=== PATIENT | male | born 1960 | race Caucasian/White ===

== ENCOUNTER 2016-09-13 22:05 | Emergency (ER) | payer OTHER ==
[2016-09-13] MEDS ORDERED: KETOROLAC 60 MG/2 ML VIAL IVP STA (22:43)
[2016-09-13] MEDS ORDERED: ONDANSETRON ODT 4 MG TABLET TL STA (22:43)
[2016-09-13] MEDS ORDERED: SODIUM CHLORIDE 0.9% 1,000 ML IV ONE (22:43)
[2016-09-13] MEDS ORDERED: ACETAMINOPHEN 500 MG TABLET PO STA (22:43)
[2016-09-13] MEDS ORDERED: ONDANSETRON 4 MG/2 ML VIAL ONE (22:54)
[2016-09-13] MEDS ORDERED: KETOROLAC 30 MG/ML VIAL ONE (22:54)
[2016-09-13] MEDS ORDERED: ACETAMINOPHEN 500 MG TABLET PO ONE (22:55)
[2016-09-13] MEDS ORDERED: CIPROFLOXACIN 250 MG TABLET PO STA (23:29)
[2016-09-13] MEDS ORDERED: CIPROFLOXACIN 250 MG TABLET PO ONE (23:36)
[2016-09-14] MEDS ORDERED: ONDANSETRON ODT 4 MG Prepack 2 TL PRN (00:08)
[2016-09-14] MEDS ORDERED: ONDANSETRON ODT 4 MG Prepack 2 TL ONE (00:11)
== END 2016-09-14 00:28 | disposition home or self-care (01) ==
DX: R30.0 Dysuria (principal); R50.9 Fever, unspecified; R10.30 Lower abdominal pain, unspecified
CPT/HCPCS: 36415; 80053; 81003; 83605; 83690; 85025; 96374; 99283; 99284; A9270

== ENCOUNTER 2017-05-15 02:08 | Outpatient (CLI) | payer OTHER | END 2017-05-15 02:09 | disposition critical access hospital (66) | LOC: EMS 02:08 | PROVIDERS: ATTEND Surgery | DX: M54.5 Low back pain (principal) | CPT/HCPCS: A0425; A0429 ==

== ENCOUNTER 2017-05-15 02:27 | Emergency (ER) | payer OTHER ==
[2017-05-15] MEDS ORDERED: SODIUM CHLORIDE 0.9% 1,000 ML IV ONE (02:38)
[2017-05-15] MEDS ORDERED: DEXAMETHASONE 10 MG/ML VIAL IVP STA (02:38)
--- NOTE | 2017-05-15 02:43 | ED Physician Documentation ---
PD HPI BACK PAIN - Stated complaint Stated Complaint: BACK PX - Chief complaint Chief Complaint: Back Pain - History obtained from History obtained from: Patient, Family, EMS - History of Present Illness Timing - onset: Yesterday Timing - duration: Hours Timing - details: Gradual onset, Still present Location: Lower, Right Quality: Pain, Spasm, Sharp Associated symptoms: No: Fever, Weakness, Numbness, Incontinent of urine, Unable to urinate, Hematuria, Incontinent of stool Improves with: Rest, Ice, Position, Meds Worsened by: Movement Contributing factors: Other (The patient had a loading injury about 10 days ago) Similar symptoms before: Has not had sx before Recently seen: Not recently seen - Additional information Additional information: 57-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 He initially injured his back about 10 days ago lifting an appliance. He had some stiffness of to his back he steadily got better over the week and return to his usual exercise regimens of cycling he developed some increased pain this morning and when he attempted to do his usual back and abdominal exercises his pain became much worse. He is now experiencing some spasm in his legs as well and feels a bit dry.He has experienced similar spasms in his legs following cycling when he is not hydrated adequately. Review of Systems Constitutional: reports: Myalgias. denies: Fever, Chills, Fatigue Eyes: denies: Decreased vision Ears: denies: Ear pain Nose: denies: Rhinorrhea / runny nose, Congestion Throat: denies: Sore throat Cardiac: denies: Chest pain / pressure, Palpitations Respiratory: denies: Dyspnea, Cough GI: denies: Abdominal Pain, Nausea, Vomiting, Constipation, Diarrhea : denies: Dysuria, Frequency Skin: denies: Rash Musculoskeletal: reports: Back pain. denies: Neck pain, Extremity pain Neurologic: denies: Generalized weakness, Focal weakness, Numbness PD PAST MEDICAL HISTORY - Past Medical History Cardiovascular: None Respiratory: None Endocrine/Autoimmune: None GI: None, Colon polyps : Benign prostate hypertrophy, Other HEENT: None Psych: None Derm: None - Past Surgical History Past Surgical History: Yes General: Colonoscopy Ortho: Other - Present Medications Home Medications: Ambulatory Orders Medication Instructions Recorded Confirmed Doxazosin [Cardura] 4 mg PO DAILY 10/25/15 10/25/15 Ciprofloxacin HCl [Cipro] 500 mg PO BID #14 tablet 09/14/16 Ondansetron Odt [Zofran] 4 mg TL Q6H PRN #10 tablet 09/14/16 Cyclobenzaprine [Flexeril] 10 mg PO TID PRN #20 tablet 05/15/17 HYDROcod/ACETAM 5/325 [[place] 5/325] 1 - 2 ea PO Q6H PRN #15 tablet 05/15/17 - Allergies Allergies/Adverse Reactions: Allergies Allergy/AdvReac Type Severity Reaction Status Date / Time No Known Drug Allergies Allergy Verified 05/15/17 02:37 - Social History Does the pt smoke?: No Smoking Status: Never smoker Does the pt drink ETOH?: Yes Does the pt have substance abuse?: No - POLST Patient has POLST: No PD ED PE NORMAL - Vitals Vital signs reviewed: Yes (hypertensive ) - General General: No acute distress, Well developed/nourished - HEENT HEENT: Atraumatic, PERRL - Neck Neck: Supple, no meningeal sign - Cardiac Cardiac: RRR, No murmur - Respiratory Respiratory: No respiratory distress, Clear bilaterally - Abdomen Abdomen: Soft, Non tender - Back Back: No CVA TTP, Other (There is paraspinous muscle tenderness to the lower lumbar spine and palpation of the lower muscles illicits acute spasm.) - Derm Derm: Normal color, Warm and dry, No rash - Extremities Extremities: No deformity, No edema - Neuro Neuro: Alert and oriented X 3, 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, No motor deficit, No sensory deficit, Normal speech - Psych Psych: Normal mood, Normal affect Results - Vitals Vitals: Vital Signs - 24 hr 05/15/17 05/15/17 02:34 04:03 Temperature 37.0 C Heart Rate 67 55 L Respiratory 17 16 Rate Blood Pressure 149/82 H 152/80 H O2 Saturation 100 96 Oxygen O2 Source Room air - Labs Labs: Laboratory Tests 05/15/17 05/15/17 05/15/17 02:45 02:45 02:45 WBC 8.3 RBC 4.67 L Hgb 14.7 Hct 43.0 MCV 92.1 MCH 31.5 H MCHC 34.2 RDW 12.4 Plt Count 257 MPV 7.3 L Neut # 5.5 Lymph # 1.8 [place] # 0.8 Eos # 0.2 Baso # 0.0 Absolute Nucleated RBC 0.00 Nucleated RBCs 0.0 Sodium 139 Potassium 3.3 L Chloride 104 Carbon Dioxide 26 Anion Gap 9.0 BUN 22 H Creatinine 0.9 Estimated GFR (MDRD) 86 L Glucose 105 H Calcium 9.6 Total Bilirubin 1.3 H AST 20 ALT 16 Alkaline Phosphatase 50 Troponin I < 0.04 Total Protein 7.3 Albumin 4.4 Globulin 2.9 Albumin/Globulin Ratio 1.5 Lipase 24 Procedures - IVC sono (time) 0241 Bedside IVC sono: IVC measures (cm) (1.44), IVC collapsed c insp (cm) (complete) , Dehydration (mild) PD MEDICAL DECISION MAKING - ED course Complexity details: reviewed old records, reviewed results, re-evaluated patient , considered differential, d/w patient, d/w family ED course: 57-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 He is brought into the hospital by ambulance he is well if he is not moving at all if he moves even a little bit he has acute spasm. Here in the emergency department he is found to be dehydrated and he is given IV hydration and dexamethasone. He does ride his bicycle and he has been back to exercising and I suspect this is where he became dehydrated and his recent injury has led to the spasms in his back with the dehydration. Ultimately he gets relief with dilaudid. Departure - Departure Disposition: 01 Home, Self Care Clinical Impression: Dehydration Lumbar strain Qualifiers: Encounter type: initial encounter Qualified Code(s): S39.012A - Strain of muscle, fascia and tendon of lower back, initial encounter Condition: Stable Instructions: ED Sprain Strain Lumbar, ED Dehydration Follow-Up: Hussein Ye MD [Primary Care Provider] - Prescriptions: Cyclobenzaprine [Flexeril] 10 mg PO TID PRN #20 tablet PRN Reason: Spasms HYDROcod/ACETAM 5/325 [[place] 5/325] 1 - 2 ea PO Q6H PRN #15 tablet PRN Reason: Pain
[2017-05-15 02:51] LABS: BASOPHILS % (AUTO) 0.5 %; EOSINOPHILS # (AUTO) 0.2 10^3/uL (0.0-0.7); EOSINOPHILS % (AUTO) 2.2 %; HGB - HEMOGLOBIN 14.7 g/dL (14.0-18.0); LYMPHOCYTES # (AUTO) 1.8 10^3/uL (1.5-3.5); LYMPHOCYTES % (AUTO) 21.2 %; MEAN CORPUSCULAR HEMOGLOBIN 31.5 pg (27.0-31.0); MEAN CORPUSCULAR HGB CONC 34.2 g/dL (32.0-36.0); MEAN CORPUSCULAR VOLUME 92.1 fL (80.0-94.0); MEAN PLATELET VOLUME 7.3 fL (7.4-11.4); MONOCYTES # (AUTO) 0.8 10^3/uL (0.0-1.0); NEUTROPHILS # (AUTO) 5.5 10^3/uL (1.5-6.6); NEUTROPHILS % (AUTO) 66.1 %; RED BLOOD COUNT 4.67 10^6/uL (4.70-6.10); RED CELL DISTRIBUTION WIDTH 12.4 % (12.0-15.0); UNCORRECTED WHITE BLOOD COUNT 8.3 x10^3/uL; WHITE BLOOD COUNT 8.3 x10^3/uL (4.8-10.8)
[2017-05-15] MEDS ORDERED: DEXAMETHASONE 10 MG/ML VIAL ONE (03:00)
[2017-05-15 03:03] LABS: ALBUMIN/GLOBULIN RATIO 1.5 (1.0-2.2); BILIRUBIN,TOTAL 1.3 mg/dL (0.2-1.0); CALCIUM 9.6 mg/dL (8.5-10.3); CREATININE 0.9 mg/dL (0.6-1.2); POTASSIUM 3.3 mmol/L (3.5-5.0); TOTAL PROTEIN 7.3 g/dL (6.7-8.2)
[2017-05-15] MEDS ORDERED: POTASSIUM BICARB 25 MEQ TABLET PO STA (03:23)
[2017-05-15] MEDS ORDERED: POTASSIUM BICARB 25 MEQ TABLET PO ONE (03:33)
[2017-05-15] MEDS ORDERED: KETOROLAC 60 MG/2 ML VIAL IVP STA (03:33)
[2017-05-15] MEDS ORDERED: KETOROLAC 30 MG/ML VIAL ONE (03:43)
[2017-05-15] MEDS ORDERED: HYDROmorphone 1 MG/ML SYRINGE IVP STA (04:09)
[2017-05-15] MEDS ORDERED: HYDROmorphone 1 MG/ML SYRINGE ONE (04:23)
[2017-05-15 05:00] VITALS: BP 153/80
== END 2017-05-15 05:09 | disposition home or self-care (01) ==
LOC: EDUNIT# → SUPCPDRO 02:27 → ED 02:27
DX: E86.0 Dehydration (principal); S39.012A Strain of muscle, fascia and tendon of lower back, initial encounter; X50.0XXA Overexertion from strenuous movement or load, initial encounter; Y93.89 Activity, other specified
CPT/HCPCS: 36415; 80053; 83690; 84484; 85025; 96374; 96375; 99283; 99284; A9270; J1170

== ENCOUNTER 2021-09-06 08:00 | Outpatient (CLI) | payer OTHER ==
[2021-09-06 12:02] LABS: BASOPHILS # (AUTO) 0.1 10^3/uL (0.0-0.1); BASOPHILS % (AUTO) 0.9 %; EOSINOPHILS # (AUTO) 0.1 10^3/uL (0.0-0.7); EOSINOPHILS % (AUTO) 2.3 %; HCT - HEMATOCRIT 41.2 % (42.0-52.0); HGB - HEMOGLOBIN 14.4 g/dL (14.0-18.0); LYMPHOCYTES # (AUTO) 1.4 10^3/uL (1.5-3.5); LYMPHOCYTES % (AUTO) 23.8 %; MEAN CORPUSCULAR VOLUME 91.6 fL (80.0-94.0); MEAN PLATELET VOLUME 9.5 fL (7.4-11.4); MONOCYTES # (AUTO) 0.9 10^3/uL (0.0-1.0); MONOCYTES % (AUTO) 14.9 %; NEUTROPHILS # (AUTO) 3.3 10^3/uL (1.5-6.6); NEUTROPHILS % (AUTO) 57.6 %; PLT - PLATELET COUNT 306 10^3/uL (130-450); RED CELL DISTRIBUTION WIDTH 11.9 % (12.0-15.0); WHITE BLOOD COUNT 5.7 x10^3/uL (4.8-10.8)
[2021-09-06 12:19] LABS: ALBUMIN 3.9 g/dL (3.2-5.5); ALBUMIN/GLOBULIN RATIO 1.4 (1.0-2.2); ALKALINE PHOSPHATASE 47 IU/L (42-121); ALT ALANINE AMINOTRANSFERASE 25 IU/L (10-60); AST ASPARTATE AMINOTRANSFERASE 24 IU/L (10-42); BILIRUBIN,TOTAL 1.2 mg/dL (0.2-1.0); BUN - BLOOD UREA NITROGEN 15 mg/dL (6-20); CALCIUM 9.2 mg/dL (8.5-10.3); CARBON DIOXIDE - CO2 25 mmol/L (21-32); CHLORIDE 104 mmol/L (101-111); CHOL/HDL RATIO 3.1 (<5.0); CHOLESTEROL 214 mg/dL; GFR - MDRD 75 (>89); GLUCOSE 92 mg/dL (70-100); HDL CHOLESTEROL 70 mg/dL; LDL CHOLESTEROL,CALCULATED 133 mg/dL; LDL/HDL RATIO 1.9 (<3.6); POTASSIUM 3.5 mmol/L (3.5-5.0); SODIUM 137 mmol/L (135-145); TOTAL PROTEIN 6.7 g/dL (6.7-8.2); TRIGLYCERIDES 54 mg/dL; VLDL CHOLESTEROL 11 mg/dL
[2021-09-06 12:25] LABS: THYROID STIMULATING HORMONE 1.35 uIU/mL (0.34-5.60)
== END 2021-09-06 23:59 ==
LOC: LAB.WCP 08:00
PROVIDERS: ATTEND Family Medicine
DX: Z00.00 Encounter for general adult medical examination without abnormal findings (principal); E78.5 Hyperlipidemia, unspecified
CPT/HCPCS: 36415; 80053; 80061; 83721; 84443; 85025

== ENCOUNTER 2022-12-01 09:43 | Outpatient (CLI) | payer BC ==
--- NOTE | 2022-12-01 10:32 | XRAY Report ---
PROCEDURE: Shoulder 2 View RT INDICATIONS: CERVICAL RADICULOPATHY TECHNIQUE: 2 views of the shoulder were acquired. COMPARISON: None. FINDINGS: Bones: Glenoid anchor sutures. Mild glenohumeral joint degenerative change. No fractures or dislocat ions. No suspicious bony lesions. Visualized ribs appear intact. Soft tissues: No suspicious soft tissue calcifications. IMPRESSION: Mild glenohumeral joint degenerative change. No evidence acute bony abnormality of the r ight shoulder. If clinical suspicion and/or symptoms persist, further assessment with repeat plain films or advanced imaging (e.g., CT, MRI, or bone scan) may be helpful for further assessment. Reviewed by: Ren Pandey MD on 12/01/2022 10:31 AM PDT Approved by: Ren Pandey MD on 12/01/2022 10:31 AM PDT Station ID: [id number]
--- NOTE | 2022-12-01 10:34 | XRAY Report ---
PROCEDURE: Cervical Spine Comp w/Flex/Ext INDICATIONS: CERVICAL RADICULOPATHY TECHNIQUE: 7 views of the cervical spine were acquired. COMPARISON: None. FINDINGS: Bones: No fractures or dislocations to the T1 level. No suspicious bony lesions. There is somewhat diminished range of motion between flexion and extension, with preserved normal bony alignment. Obli que films demonstrate moderate to severe right foraminal narrowing at C4-C5. There is ossification po sterior to the tip of the C7 and C8 spinous processes, which is consistent with remote trauma. Soft tissues: Prevertebral soft tissues are normal in thickness. IMPRESSION: 1. Cervical spondylosis with moderate to severe right bony foraminal narrowing at C4-C5. 2. No abnormal motion on flexion and extension. Reviewed by: Ren Pandey MD on 12/01/2022 10:33 AM PDT Approved by: Ren Pandey MD on 12/01/2022 10:33 AM PDT Station ID: [id number]
== END 2022-12-01 09:44 | disposition home or self-care (01) ==
LOC: DI 09:43
PROVIDERS: ATTEND Family Medicine
DX: M75.41 Impingement syndrome of right shoulder (principal); M19.011 Primary osteoarthritis, right shoulder; M47.22 Other spondylosis with radiculopathy, cervical region; M48.02 Spinal stenosis, cervical region

== ENCOUNTER 2023-03-05 07:17 | Outpatient (CLI) | payer BC ==
[2023-03-05 13:16] LABS: BASOPHILS % (AUTO) 0.7 %; EOSINOPHILS # (AUTO) 0.2 10^3/uL (0.0-0.7); EOSINOPHILS % (AUTO) 4.3 %; HCT - HEMATOCRIT 44.8 % (42.0-52.0); HGB - HEMOGLOBIN 15.5 g/dL (14.0-18.0); LYMPHOCYTES # (AUTO) 1.4 10^3/uL (1.5-3.5); LYMPHOCYTES % (AUTO) 25.8 %; MEAN CORPUSCULAR HEMOGLOBIN 31.4 pg (27.0-31.0); MEAN CORPUSCULAR HGB CONC 34.6 g/dL (32.0-36.0); MEAN CORPUSCULAR VOLUME 90.9 fL (80.0-94.0); MEAN PLATELET VOLUME 9.9 fL (7.4-11.4); MONOCYTES # (AUTO) 0.7 10^3/uL (0.0-1.0); MONOCYTES % (AUTO) 12.1 %; NEUTROPHILS # (AUTO) 3.2 10^3/uL (1.5-6.6); NEUTROPHILS % (AUTO) 56.9 %; PLT - PLATELET COUNT 261 10^3/uL (130-450); RED BLOOD COUNT 4.93 10^6/uL (4.70-6.10); RED CELL DISTRIBUTION WIDTH 12.3 % (12.0-15.0); WHITE BLOOD COUNT 5.6 x10^3/uL (4.8-10.8)
[2023-03-05 13:45] LABS: ALBUMIN 4.1 g/dL (3.2-5.5); ALBUMIN/GLOBULIN RATIO 1.4 (1.0-2.2); ALKALINE PHOSPHATASE 41 IU/L (42-121); ALT ALANINE AMINOTRANSFERASE 24 IU/L (10-60); AST ASPARTATE AMINOTRANSFERASE 22 IU/L (10-42); BILIRUBIN,TOTAL 1.6 mg/dL (0.2-1.0); BUN - BLOOD UREA NITROGEN 19 mg/dL (6-20); CALCIUM 9.2 mg/dL (8.5-10.3); CARBON DIOXIDE - CO2 30 mmol/L (21-32); CHLORIDE 105 mmol/L (101-111); CHOL/HDL RATIO 3.1 (<5.0); CHOLESTEROL 238 mg/dL; GFR - MDRD 75 (>89); GLUCOSE 99 mg/dL (70-100); HDL CHOLESTEROL 77 mg/dL; LDL CHOLESTEROL,CALCULATED 143 mg/dL; LDL/HDL RATIO 1.9 (<3.6); POTASSIUM 3.9 mmol/L (3.5-5.0); SODIUM 139 mmol/L (135-145); TOTAL PROTEIN 7.1 g/dL (6.7-8.2); TRIGLYCERIDES 90 mg/dL; VLDL CHOLESTEROL 18 mg/dL
[2023-03-05 13:57] LABS: THYROID STIMULATING HORMONE 1.03 uIU/mL (0.34-5.60)
== END 2023-03-05 07:18 | disposition home or self-care (01) ==
LOC: LAB.N 07:17
PROVIDERS: ATTEND Family Medicine
DX: Z00.00 Encounter for general adult medical examination without abnormal findings (principal); M54.12 Radiculopathy, cervical region; M75.41 Impingement syndrome of right shoulder
CPT/HCPCS: 36415; 80053; 80061; 83721; 84443; 85025

== ENCOUNTER 2023-11-15 16:15 | Outpatient (CLI) | payer BC ==
[2023-11-15 16:37] LABS: CREATININE 0.8 mg/dL (0.6-1.3)
[2023-11-15] MEDS ORDERED: GADOTERATE MEGLUMINE 7.5 MMOL/15 ML VIAL ONE (16:51)
[2023-11-15] MEDS: GADOTERATE MEGLUMINE 7.5 MMOL/15 ML VIAL IVP ONE (17:44)
--- NOTE | 2023-11-16 09:57 | MRI Report ---
PROCEDURE: Pelvis W/WO INDICATIONS: ELEVATED PSA CONTRAST: CLARISCAN 15ML TECHNIQUE: Coronal ultra fast SE, axial T1 FSE with fat saturation, 3-plane nonbreath-hold T2 FSE. After the ad ministration of contrast, dynamic axial, delayed axial and coronal ultra fast GE or 2-D spoiled GE wi th fat saturation through the pelvis. Optional diffusion weighted imaging and ADC may be performed. COMPARISON: None. FINDINGS: Image quality: Diffusion weighted and dynamic contrast enhanced images are diagnostic. Prostate: Gland size is 7.1 x 5.8 x 5.2 cm; ellipsoid gland volume is 111 mL. No foci of intrinsic T 1 hyperintense signal to suggest hemorrhage. Multiple BPH nodules. Median lobe hypertrophy. Prostate lesions: Lesion 1: Location: Left base posterior transition zone, on axial series 6, image 12 and sagittal series 8, beatrice ge 18. Size: 0.5 cm. T2W signal: Heterogeneous DWI signal: Mild hyperintense ADC signal: Mild hypointense Enhancement: Absent Extracapsular extension: No. No neurovascular involvement. PI-RADS score: 3 Genitourinary system: Bladder wall thickness is normal. Distal ureters are non distended. Bowel and peritoneum: No pathologic free pelvic fluid. Scant free fluid in the pelvis. Inferior colo n and small bowel loops are normal in caliber. Nodes and vessels: No pelvic or inguinal adenopathy by size criteria. Iliac vessels are normal in c aliber. Soft tissues: Question small fat-containing inguinal hernias. Bones: Bone marrow demonstrates normal overall signal. No suspicious bony lesions. Small sacral Tarl ov cyst. IMPRESSION: 1. Marked prostatomegaly with multiple BPH nodules. 2. No PI-RADS 4 or 5 observations. 3. No enlarged lymph nodes. Reviewed by: Ole Blunt MD on 11/16/2023 9:56 AM PDT Approved by: Ole Blunt MD on 11/16/2023 9:56 AM PDT Station ID: [id number]
== END 2023-11-15 16:16 | disposition home or self-care (01) ==
LOC: LAB 16:15
PROVIDERS: ATTEND Urology
DX: R97.20 Elevated prostate specific antigen [PSA] (principal); N40.2 Nodular prostate without lower urinary tract symptoms
CPT/HCPCS: 36415; 82565

== ENCOUNTER 2023-12-13 04:08 | Emergency (ER) | payer BC ==
[2023-12-13 04:29] LABS: BASOPHILS % (AUTO) 0.3 %; EOSINOPHILS # (AUTO) 0.1 10^3/uL (0.0-0.7); HCT - HEMATOCRIT 38.1 % (42.0-52.0); HGB - HEMOGLOBIN 12.8 g/dL (14.0-18.0); LYMPHOCYTES # (AUTO) 1.1 10^3/uL (1.5-3.5); LYMPHOCYTES % (AUTO) 12.8 %; MEAN CORPUSCULAR HEMOGLOBIN 30.8 pg (27.0-31.0); MEAN CORPUSCULAR HGB CONC 33.6 g/dL (32.0-36.0); MEAN CORPUSCULAR VOLUME 91.6 fL (80.0-94.0); MEAN PLATELET VOLUME 9.3 fL (7.4-11.4); MONOCYTES # (AUTO) 0.7 10^3/uL (0.0-1.0); MONOCYTES % (AUTO) 7.9 %; NEUTROPHILS # (AUTO) 6.8 10^3/uL (1.5-6.6); NEUTROPHILS % (AUTO) 77.8 %; PLT - PLATELET COUNT 241 10^3/uL (130-450); RED BLOOD COUNT 4.16 10^6/uL (4.70-6.10); RED CELL DISTRIBUTION WIDTH 12.2 % (12.0-15.0); WHITE BLOOD COUNT 8.7 x10^3/uL (4.8-10.8)
--- NOTE | 2023-12-13 04:39 | ED Physician Documentation ---
PD HPI ABD PAIN - Stated complaint Stated Complaint: ABD PX - Chief complaint Chief Complaint: Abd Pain - History obtained from History obtained from: Patient - Additional information Additional information: HPI from patient. Patient complains of abdominal pain. 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 The pain is located primarily in the epigastrium but radiates to both upper quadrants as well as straight through to the back. He has had nausea but no vomiting. He had a similar episode approximately 1 week ago that resolved within a few hours after taking an antacid. Regarding tonight symptoms, there are no exacerbating nor ameliorating factors. Denies fever. No past abdominal surgical history. Review of Systems Constitutional: denies: Fever, Chills, Sweats Cardiac: reports: Reviewed and negative Respiratory: reports: Reviewed and negative GI: reports: Abdominal Pain, Nausea. denies: Abdominal Swelling, Vomiting, Constipation, Diarrhea : reports: Frequency (not new). denies: Dysuria PD PAST MEDICAL HISTORY - Past Medical History Cardiovascular: None Respiratory: None Endocrine/Autoimmune: None GI: None, Colon polyps : Benign prostate hypertrophy, Other HEENT: None Psych: None Derm: None - Past Surgical History Past Surgical History: Yes General: Colonoscopy Ortho: Other - Present Medications Home Medications: Ambulatory Orders Medication Instructions Recorded Confirmed Doxazosin [Cardura] 4 mg PO DAILY 10/25/15 10/25/15 Ciprofloxacin HCl [Cipro] 500 mg PO BID #14 tablet 09/14/16 Ondansetron Odt [Zofran] 4 mg TL Q6H PRN #10 tablet 09/14/16 Cyclobenzaprine [Flexeril] 10 mg PO TID PRN #20 tablet 05/15/17 HYDROcod/ACETAM 5/325 [[place] 5/325] 1 - 2 ea PO Q6H PRN #15 tablet 05/15/17 Ondansetron Odt [Zofran Odt] 4 mg TL Q6H PRN #14 tablet 12/13/23 oxyCODONE [Roxicodone] 5 - 10 mg PO Q6H PRN #20 tablet 12/13/23 - Allergies Allergies/Adverse Reactions: Allergies Allergy/AdvReac Type Severity Reaction Status Date / Time No Known Drug Allergies Allergy Verified 12/13/23 04:20 - Social History Does the pt smoke?: No Smoking Status: Never smoker Does the pt drink ETOH?: Yes Does the pt have substance abuse?: No - POLST Patient has POLST: No PD ED PE NORMAL - Vitals Vital signs reviewed: Yes - General General: Alert and oriented X 3, Well developed/nourished, Other (appears uncomfortable) - Cardiac Cardiac: RRR, No murmur - Respiratory Respiratory: No respiratory distress, Clear bilaterally - Abdomen Abdomen: Soft, Non distended, Other (mild TTP across upper abdomen, more pronounced in RUQ and epigastrium than LUQ. no rebound, no guarding) - Back Back: No CVA TTP - Derm Derm: Normal color, Warm and dry, No rash - Extremities Extremities: No edema Results - Vitals Vitals: Vital Signs - 24 hr 12/13/23 12/13/23 12/13/23 04:18 04:20 06:16 Temperature 36.6 C Heart Rate 59 L 58 L 71 Respiratory 18 16 Rate Blood Pressure 179/89 H 146/66 H O2 Saturation 100 97 12/13/23 07:36 Temperature Heart Rate 60 Respiratory 18 Rate Blood Pressure 141/74 H O2 Saturation 100 Oxygen O2 Source Room air - Labs Labs: Laboratory Tests 12/13/23 12/13/23 12/13/23 04:24 04:24 05:35 WBC 8.7 RBC 4.16 L Hgb 12.8 L Hct 38.1 L MCV 91.6 MCH 30.8 MCHC 33.6 RDW 12.2 Plt Count 241 MPV 9.3 Neut # (Auto) 6.8 H Lymph # (Auto) 1.1 L [place] # (Auto) 0.7 Eos # (Auto) 0.1 Baso # (Auto) 0.0 Absolute Nucleated RBC 0.00 Nucleated RBC % 0.0 Sodium 135 Potassium 3.3 L Chloride 104 Carbon Dioxide 24 Anion Gap 7.0 BUN 25 H Creatinine 1.0 Estimated GFR (MDRD) 75 L Glucose 123 H Calcium 9.9 Total Bilirubin 0.6 AST 18 ALT 16 Alkaline Phosphatase 51 Total Protein 6.6 Albumin 4.0 Globulin 2.6 Albumin/Globulin Ratio 1.5 Lipase 37 Urine Color YELLOW Urine Clarity CLEAR Urine pH 6.0 Ur Specific [place] 1.020 Urine Protein NEGATIVE Urine Glucose (UA) NEGATIVE Urine Ketones 15 H Urine Occult Blood TRACE-LYSE Urine Nitrite NEGATIVE Urine Bilirubin NEGATIVE Urine Urobilinogen 0.2 (NORMAL) Ur Leukocyte Esterase NEGATIVE Ur Microscopic Review NOT INDICATED Urine Culture Comments NOT INDICATED - Rads (name of study) CT A/P with IV contrast Relevant Findings:: Prelim report reviewed, See rad report PD Medical Decision Making - ED course Complexity details: reviewed results, re-evaluated patient, considered differential, d/w patient ED course: No concerning or diagnostic findings on blood tests, urinalysis. He has mild hypokalemia (3.3). White blood cell count is normal, as are LFTs and lipase. Urinalysis is negative except for 15 ketones. Ultrasound is not available at this hour at [facility], and a CT of the abdomen pelvis with IV contrast is undertaken. This demonstrates multiple gallstones in the gallbladder lumen. Per radiologist reading, "wall thickening is suspected. 1 or more stones is present in the gallbladder neck. The bile ducts are unremarkable." He is given 1 L normal saline IV along with 4 mg IV Zofran and 1 mg IV Dilaudid. On reevaluation, he is asleep. He awakens easily to voice and is in NAD. He reports resolution of his symptoms. Results discussed with patient. Advised him of the need to follow-up with a general surgeon to discuss possible surgical option (cholecystectomy). Return precautions were carefully reviewed. I have electronically submitted prescriptions for ondansetron as well as oxycodone to patient's pharmacy of choice. Departure - Departure Disposition: 01 Home, Self Care Clinical Impression: Biliary colic Condition: Good Instructions: ED Gallstone W Biliary Colic Follow-Up: Jim Park MD [Provider Admit Priv/Credential] - Prescriptions: oxyCODONE [Roxicodone] 5 - 10 mg PO Q6H PRN #20 tablet PRN Reason: Pain >8 Ondansetron Odt [Zofran Odt] 4 mg TL Q6H PRN #14 tablet PRN Reason: Nausea / Vomiting Comments: There were no concerning findings on your blood tests tonight. Your CT scan of the abdomen and pelvis demonstrates multiple gallstones, some of which are blocking the duct that empties the gallbladder; this is what is causing your symptoms. As we discussed, the next step in treating your gallstones is to meet with a general surgeon to discuss possible cholecystectomy (surgical removal of the gallbladder). I have electronically submitted prescriptions for oxycodone (narcotic/opiate pain medication) and ondansetron (antinausea medication) to the [facility] pharmacy in [place]. I am prescribing a short course of narcotic pain medication for you. These are potentially dangerous and addictive medications that should be used carefully. These medications may constipate you. Take an [id number] stool softener (docusate) twice daily with plenty of water while taking these medications. If you go 24 hours without a bowel movement, take [id number] miralax, per package instructions. Do not drink or drive while taking these medications. If you received narcotic or sedating medications while in the emergency department, do not drive for 24 hours. Store this medication in a safe, secure place and out of reach of children. It is a violation of federal law to give or sell this medication to another person or to use in a manner other than prescribed. The ED will not refill narcotic prescriptions, including prescriptions lost or stolen. To dispose of unwanted medications: 1. [facility] at [address] in [place] has a medication drop box. They accept prescription medications (in pill form) Sunday through Sunday 9:00 a.m. to 5:00 p.m. 2. The [facility] accepts prescription medications (in pill form only) for disposal year round. Call for more information. 3. Contact the [facility] for the next [facility] sponsored prescription drug collection event. , [phone], or [phone]; Discharge Date/Time: 12/13/23 07:40
[2023-12-13 04:46] LABS: ALBUMIN/GLOBULIN RATIO 1.5 (1.0-2.2); BILIRUBIN,TOTAL 0.6 mg/dL (0.2-1.0); CALCIUM 9.9 mg/dL (8.5-10.3); POTASSIUM 3.3 mmol/L (3.5-4.5); TOTAL PROTEIN 6.6 g/dL (6.4-8.9)
[2023-12-13] MEDS: ONDANSETRON 4 MG/2 ML VIAL IVP STA (04:56)
[2023-12-13] MEDS: HYDROmorphone 1 MG/ML CARPUJECT IVP STA (04:56)
[2023-12-13] MEDS: SODIUM CHLORIDE 0.9% 1,000 ML IV STA (04:57)
[2023-12-13] MEDS ORDERED: iohexoL-300 100 ML VIAL ONE (05:41)
[2023-12-13 05:59] LABS: BILIRUBIN,URINE NEGATIVE (NEGATIVE); GLUCOSE, URINE (UA) NEGATIVE (NEGATIVE); KETONES,URINE (UA) 15 mg/dL (NEGATIVE); LEUKOCYTE ESTERASE, URINE NEGATIVE (NEGATIVE); NITRITE,URINE NEGATIVE (NEGATIVE); OCCULT BLOOD,URINE TRACE-LYSE (NEGATIVE); PROTEIN,URINE NEGATIVE (NEGATIVE); UROBILINOGEN,URINE 0.2 (NORMAL) E.U./dL (NORMAL)
[2023-12-13] MEDS: iohexoL-300 100 ML VIAL IVP ONE (06:07)
[2023-12-13 06:08] LABS: CLARITY,URINE CLEAR (CLEAR)
[2023-12-13 07:38] VITALS: BP 141/74; O2SAT 100
--- NOTE | 2023-12-13 08:31 | CT Report ---
PROCEDURE: Abdomen/Pelvis W INDICATIONS: abd. pain CONTRAST: Omni 300, 100mls TECHNIQUE: After the administration of intravenous contrast, a CT scan of the abdomen and pelvis was performed. Images were recorded and evaluated at appropriate window settings. Reformats: coronal and sagittal. F or radiation dose reduction, the following was used: automated exposure control, adjustment of mA and /or kV according to patient size. COMPARISON: MRI pelvis dated 11/15/2023. FINDINGS: Image quality: Diagnostic. Lower chest: Unremarkable. Liver: No solid mass. Gallbladder and biliary tree: There are numerous gallstones in the gallbladder. These are all small. There are stones impacted in the gallbladder neck at the origin of the cystic duct. There is some deg ree of wall thickening with some potential wall edema. Findings may potentially represent acute yary cystitis. Spleen: No splenomegaly. Pancreas: No pancreatic ductal dilation. Adrenals: No adrenal nodule. Kidneys and ureters: No hydronephrosis. No renal cystic lesion which requires follow up. No solid mas s. Stomach, bowel and peritoneum: No bowel distension. No pathologic free fluid. Lymph nodes: No central or retroperitoneal adenopathy. Vessels: No infrarenal aortic aneurysm. PELVIS Reproductive organs: Marked prostatomegaly with significant impression on the bladder.. Bladder: No abnormal wall thickening, accounting for underdistention. Pelvic lymph nodes: No pelvic adenopathy by size criteria. Bones: No aggressive osseous abnormality. Other: Small bilateral fat-containing inguinal hernias. IMPRESSION: 1. Cholelithiasis with findings that may potentially indicate acute cholecystitis. Suggest clinical c orrelation. 2. Marked prostate enlargement. Of note, this has been recently evaluated with MRI of the pelvis. Ple ase see a separate report. Reviewed by: Ren Pandey MD on 12/13/2023 8:29 AM PDT Approved by: Ren Pandey MD on 12/13/2023 8:29 AM PDT Station ID: [id number]
== END 2023-12-13 07:40 | disposition home or self-care (01) ==
LOC: ED 04:08
DX: K80.70 Calculus of gallbladder and bile duct without cholecystitis without obstruction (principal); E87.6 Hypokalemia; Z79.899 Other long term (current) drug therapy
CPT/HCPCS: 36415; 74177; 80053; 81003; 83690; 85025; 96374; 99284; J1170; Q9967; 81001; 87086

== ENCOUNTER 2023-12-25 06:26 | Day surgery (SDC) | payer BC ==
[~2023-12-25 06:26] MED LIST: ceFAZolin 2 GM VIAL ONE
[2023-12-25] MEDS: LACTATED RINGERS 1,000 ML IV ONE ×2 (06:27→10:32)
[2023-12-25] MEDS ORDERED: BUPIVACAINE 0.25% PF 30 ML VIAL ONE (07:17)
[2023-12-25] MEDS ORDERED: ATROPINE ABBOJECT 1 MG/10 ML SYRINGE IVP PRN (07:26)
[2023-12-25] MEDS ORDERED: ONDANSETRON 4 MG/2 ML VIAL IVP PRN ×2 (07:26→10:38)
[2023-12-25] MEDS ORDERED: METOCLOPRAMIDE 10 MG/2 ML VIAL IVP PRN (07:26)
[2023-12-25] MEDS ORDERED: ePHEDrine 50 MG/ML VIAL IVP PRN (07:26)
[2023-12-25] MEDS ORDERED: MORPHINE 2 MG/ML CARPUJECT IVP PRN (07:26)
[2023-12-25] MEDS ORDERED: fentaNYL 100 MCG/2 ML VIAL IVP PRN (07:26)
[2023-12-25] MEDS ORDERED: NALOXONE 0.4 MG/ML VIAL IVP PRN (07:26)
--- NOTE | 2023-12-25 07:26 | ANESTHESIA ---
Pre-Anesthesia VS, & Labs - Diagnosis chronic cholecystitis - Procedure lap yary Vital Signs: Temp Pulse Resp BP Pulse Ox O2 Flow Rate 36 C L 62 18 144/86 H 99 12/25/23 06:34 12/25/23 06:34 12/25/23 06:34 12/25/23 06:34 12/25/23 06:34 Height: 5 ft 9 in Weight (kg): 72.6 kg Body Mass Index: 23.6 BMI Classification: Normal - NPO >8 hours Home Medications and Allergies Home Medications: Ambulatory Orders Doxazosin Mesylate [Cardura] 6 mg PO DAILY 12/21/23 Finasteride [Proscar] 5 mg PO DAILY 12/21/23 Doxazosin Mesylate [Cardura] 6 mg PO DAILY 12/21/23 Finasteride [Proscar] 5 mg PO DAILY 12/21/23 Allergies/Adverse Reactions: Allergies Allergy/AdvReac Type Severity Reaction Status Date / Time No Known Drug Allergies Allergy Verified 12/13/23 04:20 Anes History & Medical History - Anesthetic History Anesthesia Complications: reports: No previous complications Family history of Anesthesia Complications: Denies Family history of Malignant Hyperthermia: Denies - Medical History Cardiovascular: reports: None Pulmonary: reports: Asthma Gastrointestinal: reports: Colon polyps Urinary: reports: Benign prostate hypertrophy Musculoskeletal: reports: None Endocrine/Autoimmune: reports: None Skin: reports: Eczema Smoking Status: Never smoker - Surgical History General: reports: Colonoscopy Orthopedic: reports: Other Exam General: Alert, Oriented x3, Cooperative Dental: WNL Mouth Openin Fingerbreadth Neck Mobility: Normal Mallampati classification: I Thyromental Distance: 4-6 cm Respiratory: Lungs clear Cardiovascular: Regular rate Plan Anesthesia Type: General Consent for Procedure(s) Verified and Reviewed: Yes Code Status: Attempt Resuscitation ASA classification: 2-Mild systemic disease Is this case an emergency?: No
[2023-12-25] MEDS ORDERED: LACTATED RINGERS 1,000 ML IV SCH (08:00)
[2023-12-25] MEDS ORDERED: fentaNYL 100 MCG/2 ML VIAL ONE ×2 (08:17→09:35)
[2023-12-25] MEDS ORDERED: MIDAZOLAM 2 MG/2 ML VIAL ONE (08:17)
[2023-12-25] MEDS ORDERED: KETOROLAC 30 MG/ML VIAL ONE (08:44)
[2023-12-25] MEDS ORDERED: ONDANSETRON 4 MG/2 ML VIAL ONE (08:44)
[2023-12-25] MEDS: BUPIVACAINE 0.25% PF 30 ML VIAL SUBQ ONE ×2 (09:00)
[2023-12-25] MEDS ORDERED: GLYCOPYRROLATE 1 MG/5 ML VIAL ONE (09:24)
[2023-12-25] MEDS ORDERED: SUGAMMADEX 200 MG/2 ML VIAL IVP ONE (10:20)
[2023-12-25] MEDS ORDERED: oxyCODONE 5 MG TABLET PO PRN (10:38)
[2023-12-25] MEDS ORDERED: HYDROmorphone 0.5 MG/0.5 ML SYRINGE IVP PRN (10:38)
[2023-12-25] MEDS ORDERED: HYDROmorphone 0.5 MG/0.5 ML SYRINGE ONE ×2 (10:44→11:01)
--- NOTE | 2023-12-25 10:44 | OPERATIVE REPORT ---
Operative Report - General Procedure Date: 12/25/23 Planned Procedure: lap yary Pre-Op Diagnosis: chronic cholecystitis Procedure Performed: lap yary and umbilical hernia repair Post Op Diagnosis: chornic cholecystitis and umbilical hernia - Procedure Note Primary Surgeon: estefania pierson Anesthesia Technique: General ET tube, Local Pathology: gb Estimated Blood Loss (mL): 5 Drain/Tube Type: Other (none) Indications: obstructed gallbladder and pain Findings: tense very thickened gallbladder 5 mm umbilical hernia Complications: none - Other Other Information/Narrative: The patient was prepped identified brought to the operating room and placed in supine position. We voided prior to surgery. Sequential compression devices were placed. General endotracheal anesthesia was induced. He was prepped and draped in a sterile fashion and given preoperative antibiotics. Local anesthetic was given to incision areas. Under anesthesia and umbilical hernia was appreciated. An infraumbilical incision was made. Dissection proceeded sharply. Umbilical skin was excised away from incarcerated preperitoneal adipose tissue. Approximately 1 cm of incarcerated preperitoneal adipose tissue was removed. Hernia defect measured approximately 5 mm. Abdominal wall was lifted upwards and abdomen entered with a Veress needle. CO2 was insufflated to a pressure of 15. An 11 mm Visiport trocar with 30 degree scope was placed through the umbilical hernia defect. There was no evidence of injury from Veress needle or trocar placement. Under direct vision two 5 mm trocars were placed in the right upper quadrant and an 11 mm trocar was placed in the epigastrium. Gallbladder was enlarged very thickened and very tense. Lateral attachments were partially taken down from the gallbladder allowing more flexibility of the gallbladder and allowing it to be grasped. Body of the gallbladder was retracted anterior. Lateral attachments close to the infundibu lum and adipose tissue was further taken down with [place] dissector and Kitner. The infundibulum of the gallbladder was then retracted right lateral and caudad. A large bare cystic plate area was carefully developed. He had both an anterior and posterior cystic artery branch. After the cystic duct and vessels were clearly identified both right lateral and left lateral the cystic duct was clipped at the gallbladder and x 3 slightly proximal and sharply divided. The anterior and posterior cystic artery branches were separately clipped and divided. A possible very small lymphatic measuring less than 1 mm was clipped and divided with cautery. Bowel bladder was mobilized off from the bed of the liver with hook cautery. There was a small amount of spillage of bile. Gallbladder was removed placed in an Endo Catch bag and brought out through an enlarged epigastric trocar site. The abdomen was then thoroughly irrigated. Liver bed was fairly soft and gallbladder was densely adherent. Surgicel was placed in the gallbladder fossa for further assurance of hemostasis. There were no apparent complications. Trocars were removed under direct vision and hemostasis assured. Fascia at the umbilical hernia site in the epigastric trocar site were both closed with running 0 Vicryl suture. Umbilical skin was tacked back down to fascia with an interrupted 3-0 Vicryl suture. Skin was closed with buried interrupted 4-0 Monocryl. Dressings were applied. Tolerated the procedure well was awakened and brought to recovery in good condition.
[2023-12-25] MEDS: HYDROmorphone 0.5 MG/0.5 ML SYRINGE IVP PRN (10:45)
[2023-12-25] MEDS: oxyCODONE 5 MG TABLET ONE (11:38)
[2023-12-25 11:59] VITALS: BP 142/77; O2SAT 99
--- NOTE | 2023-12-25 12:17 | ANESTHESIA POST OP EVALUATION ---
Anesthesia Post Eval - Post Anesthesia Eval Vitals: Last Vital Signs Temp 36.7 C 12/25/23 11:57 Pulse 66 12/25/23 11:57 Resp 15 12/25/23 11:57 BP 142/77 H 12/25/23 11:57 Pulse Ox 99 12/25/23 11:57 O2 Flow Rate CV Function Including HR & BP: Stable Pain Control: Satisfactory Nausea & Vomiting: Negative Mental Status: Baseline Respiratory Status: Airway Patent Hydration Status: Satisfactory Anesthesia Complications: None
== END 2023-12-25 06:27 | disposition home or self-care (01) ==
LOC: SDS 06:26
PROVIDERS: ATTEND Surgery
PROC: 0FT44ZZ Resection of Gallbladder, Percutaneous Endoscopic Approach (ICD-10-PCS; principal; 2023-12-25 07:30)
DX: K80.10 Calculus of gallbladder with chronic cholecystitis without obstruction (principal); K42.9 Umbilical hernia without obstruction or gangrene; J45.909 Unspecified asthma, uncomplicated
CPT/HCPCS: 47562; A9270; J1170; J7120; 93005

== ENCOUNTER 2024-03-06 10:27 | Day surgery (SDC) | payer BC ==
[2024-03-06] MEDS: LACTATED RINGERS 1,000 ML IV ONE (10:29)
[2024-03-06] MEDS ORDERED: fentaNYL 100 MCG/2 ML VIAL ONE (11:26)
[2024-03-06] MEDS ORDERED: MIDAZOLAM 2 MG/2 ML VIAL ONE (11:26)
[2024-03-06] MEDS ORDERED: PROPOFOL 200 MG/20 ML VIAL IVP ONE (11:26)
[2024-03-06] MEDS ORDERED: DEXAMETHASONE 4 MG/ML VIAL ONE (11:33)
[2024-03-06] MEDS ORDERED: SEVOFLURANE 250 ML LIQUID INH ONE (11:35)
[2024-03-06] MEDS ORDERED: MORPHINE 2 MG/ML CARPUJECT IVP PRN (11:37)
[2024-03-06] MEDS ORDERED: ATROPINE ABBOJECT 1 MG/10 ML SYRINGE IVP PRN (11:37)
[2024-03-06] MEDS ORDERED: ePHEDrine 50 MG/ML VIAL IVP PRN (11:37)
[2024-03-06] MEDS ORDERED: HYDROmorphone 0.5 MG/0.5 ML SYRINGE IVP PRN (11:37)
[2024-03-06] MEDS ORDERED: ONDANSETRON 4 MG/2 ML VIAL IVP PRN (11:37)
[2024-03-06] MEDS ORDERED: fentaNYL 100 MCG/2 ML VIAL IVP PRN (11:37)
[2024-03-06] MEDS ORDERED: NALOXONE 0.4 MG/ML VIAL IVP PRN (11:37)
[2024-03-06] MEDS ORDERED: lidocaine 1% 20 ML MDV ONE (11:39)
[2024-03-06] MEDS ORDERED: BUPIVACAINE 0.25% PF 30 ML VIAL ONE (11:39)
--- NOTE | 2024-03-06 11:46 | ANESTHESIA ---
Pre-Anesthesia VS, & Labs - Diagnosis Right Inguinal Hernia - Procedure Right hernia repair with mesh Vital Signs: Temp Pulse Resp BP Pulse Ox O2 Flow Rate 36.6 C 48 L 14 135/81 H 99 03/06/24 10:39 03/06/24 10:39 03/06/24 10:39 03/06/24 10:39 03/06/24 10:39 Height: 5 ft 9 in Weight (kg): 74.8 kg Body Mass Index: 24.3 BMI Classification: Normal Home Medications and Allergies Active Medications Atropine Sulfate (Atropine Abboject 1 Mg/10 Ml Syringe) 0.5 mg IVP Q5M PRN PRN Reason: Bradycardia Stop: 03/07/24 11:37 Ephedrine Sulfate (Ephedrine 50 Mg/Ml Vial) 10 mg IVP Q5M PRN PRN Reason: HYPOTENSION Stop: 03/07/24 11:37 Fentanyl (Fentanyl 100 Mcg/2 Ml Vial) 25 - 50 mcg IVP Q5M PRN PRN Reason: BREAKTHROUGH PAIN (2nd Choice) Stop: 03/07/24 11:37 Hydromorphone HCl (Hydromorphone 0.5 Mg/0.5 Ml Syringe) 0.2 - 0.6 mg IVP Q5M PRN PRN Reason: PAIN (First Choice) Stop: 03/07/24 11:37 Lactated Ringer's (Lr) 1,000 mls @ 100 mls/hr IV .Q10H RICH Stop: 03/06/24 21:59 Morphine Sulfate (Morphine 2 Mg/Ml Carpuject) 2 - 4 mg IVP Q5M PRN PRN Reason: PAIN (3rd Choice) Stop: 03/07/24 11:37 Naloxone HCl (Naloxone 0.4 Mg/Ml Vial) 0.1 mg IVP Q2M PRN PRN Reason: RESP RATE <8 Stop: 03/07/24 11:37 Ondansetron HCl (Ondansetron 4 Mg/2 Ml Vial) 4 mg IVP ONCE PRN PRN Reason: N/V (First Choice) Stop: 03/07/24 11:37 Doxazosin Mesylate [Cardura] 6 mg PO HS 12/21/23 Finasteride [Proscar] 5 mg PO HS 12/21/23 Allergies/Adverse Reactions: Allergies Allergy/AdvReac Type Severity Reaction Status Date / Time No Known Drug Allergies Allergy Verified 03/06/24 10:53 Anes History & Medical History - Medical History Cardiovascular: reports: None Pulmonary: reports: Asthma Gastrointestinal: reports: Colon polyps Urinary: reports: Benign prostate hypertrophy Musculoskeletal: reports: None Endocrine/Autoimmune: reports: None Skin: reports: Eczema Smoking Status: Never smoker - Surgical History General: reports: Cholecystectomy, Colonoscopy, Other Orthopedic: reports: Other Exam General: Alert, Oriented x3, Cooperative Dental: WNL, Other (Non removable galvez teeth crowns) Mouth Openin Fingerbreadth Mallampati classification: I, II Plan Anesthesia Type: General Consent for Procedure(s) Verified and Reviewed: Yes Code Status: Attempt Resuscitation ASA classification: 2-Mild systemic disease Is this case an emergency?: No
[2024-03-06] MEDS ORDERED: LACTATED RINGERS 1,000 ML IV SCH (12:00)
--- NOTE | 2024-03-06 12:15 | HISTORY & PHYSICAL EXAMINATION ---
Chief Complaint - Chief Complaint Chief Complaint: here for hernia repair History of Present Illness - History Obtained From Records Reviewed: yes History obtained from: pt Exam Limitations: painful right groin bulge for couple months History - Past Medical History Cardiovascular: reports: None Respiratory: reports: Asthma Endocrine/Autoimmune: reports: None GI: reports: Colon polyps : reports: Benign prostate hypertrophy HEENT: reports: None Psych: reports: None Musculoskeletal: reports: None Derm: reports: Eczema MRSA Hx?: No - Past Surgical History General: reports: Cholecystectomy, Colonoscopy, Other Ortho: reports: Other - POLST Patient has POLST: No Meds/Allgy - Home Medications Home Medications: Ambulatory Orders Medication Instructions Recorded Confirmed Doxazosin Mesylate [Cardura] 6 mg PO HS 12/21/23 03/06/24 Finasteride [Proscar] 5 mg PO HS 12/21/23 03/06/24 - Allergies Allergies/Adverse Reactions: Allergies Allergy/AdvReac Type Severity Reaction Status Date / Time No Known Drug Allergies Allergy Verified 03/06/24 10:53 Review of Systems - Other Findings Other Findings: 10 pt ros as above otherwise unremarkable Exam - Vital Signs Vital Signs: Vital Signs x48h Temp Pulse Resp BP Pulse Ox 03/06/24 10:39 36.6 C 48 L 14 135/81 H 99 - Physical Exam General Appearance: positive: No acute distress, Alert Eyes Bilateral: positive: PERRL, EOMI ENT: positive: No signs of dehydration Neck: positive: No JVD, Trachea midline Respiratory: positive: No respiratory distress Cardiovascular: positive: Regular rate & rhythm Abdomen: positive: Other (right inguinal hernia present) Neurologic/Psychiatric: positive: Oriented x3 Conclusion/Plan - Problem List (1) Inguinal hernia Conclusion/Plan: plan open repair. parq held and consent obtained
[2024-03-06] MEDS ORDERED: ePHEDrine 50 MG/ML VIAL IVP ONE ×2 (12:34→13:25)
[2024-03-06] MEDS: BUPIVACAINE 0.25% PF 30 ML VIAL SUBQ ONE (12:42)
[2024-03-06] MEDS ORDERED: GLYCOPYRROLATE 1 MG/5 ML VIAL ONE (12:54)
[2024-03-06] MEDS ORDERED: SUGAMMADEX 200 MG/2 ML VIAL IVP ONE (13:28)
[2024-03-06] MEDS: LACTATED RINGERS 900 ML IV ONE ×2 (13:52→13:57)
--- NOTE | 2024-03-06 14:00 | OPERATIVE REPORT ---
Operative Report - General Procedure Date: 03/06/24 Planned Procedure: open right inguinal hernia Pre-Op Diagnosis: right inguinal hernia Procedure Performed: open right inguinal hernia repair with mesh Post Op Diagnosis: indirect inguinal hernia - Procedure Note Primary Surgeon: estefania pierson Anesthesia Technique: General ET tube, Local Pathology: not sent Estimated Blood Loss (mL): 0 Indications: painful hernia Findings: as above Complications: none - Other Other Information/Narrative: Patient was properly identified brought to the operating room and placed in supine position. Sequential compression devices were placed. General anesthesia was induced. He was prepped and draped in a sterile fashion and given preoperative antibiotics. Local anesthetic was given throughout the procedure. A 5 cm incision was made in the direction of Tom's lines just cephalad of the pubic tubercle. Dissection proceeded with cutting current cautery. The superficial epigastric vein was identified clamped divided and tied with 3-0 Vicryl. Dissection proceeded down to the aponeurosis. The aponeurosis was opened in the direction of its fibers and extended to the external ring. Cord structures were mobilized and brought up. The nerves were carefully protected and preserved. Cord structures were mobilized and brought up. An indirect inguinal hernia was present. The hernia sac was mobilized off the cord structures and suture ligated with 2 O silk and further reduced. Preperitoneal fat was removed. The base was tied with 2 O vicryl. Polypropylene mesh was cut to size and with tails. The mesh was secured with multiple interrupted 0 Ethibond sutures. She was placed along the pubic tubercle, Demetrius's ligament area and along the shelving border of Poupart's ligament. Sutures were placed medially along the abdominal wall musculature and internal oblique. The medial tail of the mesh was secured to the shelving border of Poupart's ligament with 3 interrupted 0 ethibond sutures recreating the internal ring of appropriate size. Aponeurosis was closed with a running 2-0 Vicryl suture. Scarpas fascia was closed with interrupted 3-0 Vicryl suture. Buried interrupted subdermal 3-0 Vicryl sutures were then placed. Skin was closed with a running 4-0 Monocryl subcuticular suture. Dressing was applied. Patient was awakened and brought to recovery in good condition.
[2024-03-06] MEDS ORDERED: HYDROcod/ACETAM 5/325 MG TABLET ONE (14:36)
[2024-03-06] MEDS: HYDROcod/ACETAM 5/325 MG TABLET PO PRN (14:37)
[2024-03-06 14:57] VITALS: BP 154/77; O2SAT 98
--- NOTE | 2024-03-06 17:33 | ANESTHESIA POST OP EVALUATION ---
Anesthesia Post Eval - Post Anesthesia Eval Vitals: Last Vital Signs Temp 36.3 C L 03/06/24 14:45 Pulse 60 03/06/24 14:45 Resp 18 03/06/24 14:45 BP 154/77 H 03/06/24 14:45 Pulse Ox 98 03/06/24 14:45 O2 Flow Rate CV Function Including HR & BP: Stable Pain Control: Satisfactory Nausea & Vomiting: Negative Mental Status: Baseline Respiratory Status: Airway Patent Hydration Status: Satisfactory Anesthesia Complications: None
== END 2024-03-06 10:28 | disposition home or self-care (01) ==
LOC: SDS 10:27
PROVIDERS: ATTEND Surgery
DX: K40.90 Unilateral inguinal hernia, without obstruction or gangrene, not specified as recurrent (principal)
CPT/HCPCS: 49505; A9270; C1781; J3490; J7120

== ENCOUNTER 2024-11-03 06:56 | Observation (INO) ==
[2024-11-03] MEDS ORDERED: ceFAZolin 2 GM VIAL ONE (07:02)
[2024-11-03] MEDS ORDERED: LIDOCAINE 2% URO-JET 5 ML SYRINGE UR ONE (07:42)
--- NOTE | 2024-11-03 07:42 | Preop H&P Attestation ---
Preop H&P Attestation Preop History & Physical Preop H&P Date: 11/03/24 History & Physical Reviewed and patient examined today.: No change -: paper h&p
[2024-11-03] MEDS ORDERED: PROPOFOL 200 MG/20 ML VIAL IVP ONE (07:43)
[2024-11-03] MEDS ORDERED: LIDOCAINE-PF 2% 10 ML AMP SUBQ ONE (07:43)
[2024-11-03] MEDS ORDERED: fentaNYL 100 MCG/2 ML VIAL ONE (07:45)
[2024-11-03] MEDS ORDERED: MIDAZOLAM 2 MG/2 ML VIAL ONE (07:45)
[2024-11-03] MEDS ORDERED: ePHEDrine 50 MG/ML VIAL IVP PRN (07:53)
[2024-11-03] MEDS ORDERED: ATROPINE ABBOJECT 1 MG/10 ML SYRINGE IVP PRN (07:53)
[2024-11-03] MEDS ORDERED: fentaNYL 100 MCG/2 ML VIAL IVP PRN (07:53)
[2024-11-03] MEDS ORDERED: ONDANSETRON 4 MG/2 ML VIAL IVP PRN ×2 (07:53→09:24)
[2024-11-03] MEDS ORDERED: METOCLOPRAMIDE 10 MG/2 ML VIAL IVP PRN (07:53)
[2024-11-03] MEDS ORDERED: HYDROmorphone 0.5 MG/0.5 ML SYRINGE IVP PRN (07:53)
[2024-11-03] MEDS ORDERED: NALOXONE 0.4 MG/ML VIAL IVP PRN (07:53)
[2024-11-03] MEDS ORDERED: MORPHINE 2 MG/ML CARPUJECT IVP PRN (07:53)
--- NOTE | 2024-11-03 07:53 | ANESTHESIA PROCEDURE NOTE ---
Pre-Anesthesia VS, & Labs Diagnosis Surgical Diagnosis:: BPH Procedure Procedure: TURP Vitals Vital Signs: Temp Pulse Resp BP Pulse Ox 36.1 C L 45 L 17 157/88 H 96 11/03/24 07:26 11/03/24 07:26 11/03/24 07:26 11/03/24 07:26 11/03/24 07:26 NPO NPO: >8 hours Meds/Allgy Home Medications Ambulatory Orders Medication Instructions Recorded Confirmed doxazosin 2 mg tablet (Cardura) 6 mg PO HS 12/21/23 11/03/24 finasteride 5 mg tablet 5 mg PO HS 12/21/23 10/31/24 triamcinolone acetonide 0.025 % 1 applic topical QDAY 09/30/24 10/28/24 topical cream Allergies Allergies Allergy/AdvReac Type Severity Reaction Status Date / Time finasteride AdvReac Severe Dizziness Verified 11/03/24 07:23 PFSH Active Problems All Active Problems (Updated 11/03/24 @ 07:52 by Lyudmila Malone CRNA) BPH loc w urin obs/LUTS (Acute) Medical History Medical History (Updated 11/03/24 @ 07:52 by Lyudmila Malone CRNA) BPH (benign prostatic hyperplasia) Colon polyps Surgical History Surgical History (Updated 11/03/24 @ 07:52 by Lyudmila Malone CRNA) History of cholecystectomy History of shoulder surgery History of colonoscopy History of hernia repair umbilical, right inguinal H/O vasectomy Social History Social History (Updated 10/28/24 @ 07:41 by Kim Mendoza RN) Smoking Status: Never smoker Do you dip or chew tobacco?: No Do you feel safe in your home environment?: Yes Suffered physical, verbal, emotional, or financial abuse?: No History of Abuse: No Frequency: Weekly Number of Amount/day: 2 Substance Use: denies use POLST Patient has POLST: No POLST Status: Full Code Anesthesia Exam (Expanded) Exam General: Alert, Oriented x3 and Cooperative Dental: WNL Mouth Openin Fingerbreadth Neck Mobility: Normal Mallampati classification: I Thyromental Distance: 4-6 cm Respiratory: Lungs clear Cardiovascular: Regular rate Plan Problem List (1) History of cholecystectomy: (2) History of shoulder surgery: (3) History of colonoscopy: (4) History of hernia repair: (5) H/O vasectomy: (6) BPH loc w urin obs/LUTS: (7) BPH (benign prostatic hyperplasia): (8) Colon polyps: Plan Anesthesia Type: General Consent for Procedure(s) Verified and Reviewed: Yes Code Status: Attempt Resuscitation ASA Classification ASA classification: 2-Mild systemic disease Is this case an emergency?: No
[2024-11-03] MEDS ORDERED: ePHEDrine 50 MG/ML VIAL IVP ONE (08:17)
[2024-11-03] MEDS ORDERED: GLYCOPYRROLATE 1 MG/5 ML VIAL ONE (08:17)
[2024-11-03] MEDS ORDERED: ONDANSETRON 4 MG/2 ML VIAL ONE (08:37)
[2024-11-03] MEDS ORDERED: DEXAMETHASONE 4 MG/ML VIAL ONE (08:37)
--- NOTE | 2024-11-03 09:29 | OPERATIVE REPORT ---
Operative Report General Procedure Data: Operation Date: 11/03/24 08:15 Proposed Procedures p Transurethral Resection Prostate(Not Applicable) - Rene Gaona MD Actual Procedures p Transurethral Resection Prostate(Not Applicable) - Rene Gaona MD Anesthesia Type General Case Staff Anesthesia Provider: Solis Boucher Anesthesia Provider: Celeste Lopez Case Times Into Recovery: 11/03/24 09:13 Procedure Start: 11/03/24 08:20 Procedure End: 11/03/24 09:08 Time out: 11/03/24 08:19 Pre-Op Diagnosis: BPH with obstruction Post Op Diagnosis: BPH with obstruction Procedure Note Estimated Blood Loss (ml): 5 Pathology: prostate chips Findings: massive prostate Complications: none Other Other Information/Narrative: After informed consent was obtained the patient was brought after informed consent was obtained the patient was brought to the OR and laid in the supine position. The patient was anesthetized per anesthesia protocols and prepped and draped in usual sterile fashion in the dorsolithotomy position. A formal timeout was performed reconfirmed the patient, procedure A 26 [place] resectoscope was advanced to the urinary bladder. He was noted to have a massively enlarged prostate with a very large median lobe. His bladder itself was enlarged with some mild trabeculations. Using bipolar loop cautery we resected from the level of the bladder neck down to the verumontanum at the 5:00 and to open up. We then took down the intervening median lobe. Spot cautery used for hemostasis. We then turned attention to the left lateral lobe which was resected from the level of the bladder neck to the level of the verumontanum. We then performed a similar procedure on the right side. He certainly had a large prostate with significant adenomatous tissue. We took down a large amount of this until he had a good open channel when sitting at the verumontanum. Chips were evacuated out and sent for analysis. Spot cautery is used for hemostasis. A Uro-Jet was placed a 22 [place] three-way Hernandez catheter with 40 cc in the balloon was placed. This concluded procedure and the patient tolerated the procedure well. He was brought to PACU that further incident. He will likely go home today versus staying overnight for observation
[2024-11-03] MEDS ORDERED: HYDROcod/ACETAM 5/325 MG TABLET ONE ×2 (10:12→14:17)
[2024-11-03] MEDS: HYDROcod/ACETAM 5/325 MG TABLET PO PRN (10:14)
--- NOTE | 2024-11-03 11:03 | ANESTHESIA POST OP EVALUATION ---
Anesthesia Post Eval Post Anesthesia Eval Vitals: Last Vital Signs Temp 36.4 C L 11/03/24 10:05 Pulse 54 L 11/03/24 10:05 Resp 16 11/03/24 10:05 BP 135/84 H 11/03/24 10:05 Pulse Ox 96 11/03/24 10:05 CV Function Including HR & BP: Stable Pain Control: Satisfactory Nausea & Vomiting: Negative Mental Status: Baseline Respiratory Status: Airway Patent Hydration Status: Satisfactory Anesthesia Complications: None
[2024-11-03] MEDS ORDERED: oxyCODONE 5 MG TABLET PO PRN ×2 (14:25)
[2024-11-03] MEDS ORDERED: SODIUM CHLORIDE FLUSH 0.9% 10 ML SYRINGE IVP PRN (14:25)
[2024-11-03] MEDS ORDERED: ZOLPIDEM 5 MG TABLET PO PRN (14:25)
--- NOTE | 2024-11-03 14:44 | PHARMACY PROGRESS NOTE ---
Best Possible Medication History Admit Date and Time: 11/03/24 1332 Home Medications Medication Instructions Recorded Confirmed Type doxazosin 2 mg tablet (Cardura) 6 mg PO HS 12/21/23 11/03/24 History oxybutynin chloride 5 mg tablet 5 mg PO TID PRN bladder spasms #15 11/03/24 Rx tabs oxycodone 5 mg tablet 5 mg PO Q4H PRN Pain #10 tabs 11/03/24 Rx triamcinolone acetonide 0.1 % 1 applic topical DAILY 11/03/24 11/03/24 History topical ointment Processed by: Pharmacy Medications reviewed in ED?: No Medication History completed: Yes Patient Interview: Completed Secondary Source(s): Insurance records [facility] Statement: As the person ultimately responsible for medication therapy, providers are able to order a medication from an existing home medication list in [facility] via the "Reconcile Routine" prior to Confirmation of that medication by network support. Such practice is discouraged except when the physician, in their clinical judg ment, deems that a medical need exists for a medication without regard to previous use.
[2024-11-03] MEDS: SOLIFENACIN SUCCINATE 5 MG TABLET PO SCH (15:19)
[2024-11-03] MEDS: ceFAZolin (2G) 2 GM in SODIUM CHLORIDE 0.9% MINIBAG 100 ML IV ONE (15:20)
[2024-11-03] MEDS: SODIUM CHLORIDE FLUSH 0.9% 10 ML SYRINGE IVP SCH (16:30)
[2024-11-03] MEDS: LACTATED RINGERS 1,000 ML IV SCH (18:27)
[2024-11-03] MEDS: DOXAZOSIN 1 MG TABLET PO SCH (20:22)
[2024-11-03] MEDS: ACETAMINOPHEN 325 MG TABLET PO PRN (20:37)
[2024-11-04 08:02] VITALS: BP 96/55; TEMP 98.6; O2SAT 97
--- NOTE | 2024-11-04 08:18 | PROVIDER PROGRESS NOTE ---
Subjective Prog Note Date Prog Note Date: 11/04/24 Prog Note Time: 08:17 Subjective Pt reports feeling: Improved Subjective: feels well Current Medications Current Medications Current Medications: Current Medications Generic Name Dose Route Start Last Admin Trade Name Freq PRN Reason Stop Dose Admin Acetaminophen 650 mg 11/03/24 14:25 11/04/24 00:46 Acetaminophen 325 Mg Tablet PO 650 mg Q4HR PRN Administration Pain 1 to 4, or Fever Hydrocodone Bitart/Acetaminophen 1 tab 11/03/24 09:24 11/03/24 14:21 Hydrocod/Acetam 5/325 Mg Tablet PO 1 tab Q4HR PRN Administration Moderate Pain (Level 4-6) Doxazosin Mesylate 6 mg 11/03/24 21:00 11/03/24 20:22 Doxazosin 1 Mg Tablet PO Not Given HS RICH Ondansetron HCl 4 mg 11/03/24 09:24 Ondansetron 4 Mg/2 Ml Vial IVP Q6HR PRN Nausea / Vomiting Oxycodone HCl 5 mg 11/03/24 14:25 Oxycodone 5 Mg Tablet PO Q4HR PRN Pain 5 to 7 Oxycodone HCl 10 mg 11/03/24 14:25 Oxycodone 5 Mg Tablet PO Q4HR PRN Pain 8 to 10 Sodium Chloride 10 ml 11/03/24 14:25 Sodium Chloride Flush 0.9% 10 Ml Syringe IVP PRN PRN NEEDED PER PROVIDER ORDERS Sodium Chloride 10 ml 11/03/24 17:00 11/03/24 23:55 Sodium Chloride Flush 0.9% 10 Ml Syringe IVP 10 ml 0100,0900,1700 RICH Administration Solifenacin 5 mg 11/03/24 10:00 11/03/24 15:19 Solifenacin Succinate 5 Mg Tablet PO Not Given DAILY RICH Zolpidem Tartrate 5 mg 11/03/24 14:25 Zolpidem 5 Mg Tablet PO QPM PRN Insomnia Objective Vital Signs/Intake & Output Reviewed Vital Signs: Yes Vital Signs: Vital Signs x48h Temp Pulse Resp BP Pulse Ox 11/04/24 07:40 37.0 C 70 18 96/55 L 97 11/04/24 04:12 37 C 68 16 121/65 98 11/04/24 00:45 37.1 C 63 20 128/74 96 Intake & Output: Intake & Output 11/01/24 11/03/24 11/03/24 11/04/24 23:59 00:59 23:59 23:59 Intake Total 03711 / 13959 3500 / 3500 Output Total 60926 / 74990 4600 / 4600 Balance -30 / -30 -1100 / -1100 Weight (kg) 73.5 kg Objective General Appearance: positive No acute distress (NAD, lying in bed, [place]ard colored effluent on slow drip cbi) Assessment/Plan Problem List (1) BPH loc w urin obs/LUTS: Impression: 64yo M POD1 s/p TURP, admitted overnight for CBI, much improved home today with catheter catheter removal sunday, earlier prn RTC 6 weeks
--- NOTE | 2024-11-04 09:29 | Discharge Summary ---
"Discharge Summary Admit Date: 11/03/24 Discharge Date: 11/04/24 Discharging Provider: Jimenez Code Status: Attempt Resuscitation DIAGNOSES Admission Diagnoses: hematuria Discharge Diagnoses with Status of Each Condition: hematuria-resolved HPI History of Present Illness: 64-year-old male with BPH and urinary symptoms on doxazosin CONSULTS | PROCEDURES Procedures: TURP HOSPITAL COURSE Hospital Course: Underwent a TURP procedure November 03, 2024. Postoperatively he was noted to have persistent hematuria and so he was kept overnight on continuous bladder irrigation. No issues perioperatively. In the morning his urine appeared benign and his continuous bladder irrigation was stopped He was sent home with a catheter in place ALLERGIES Allergies Allergy/AdvReac Type Severity Reaction Status Date / Time finasteride AdvReac Severe Dizziness Verified 11/03/24 07:23 MEDICATIONS Ambulatory Orders Medication Instructions Recorded Confirmed doxazosin 2 mg tablet (Cardura) 6 mg PO HS 12/21/23 11/03/24 oxybutynin chloride 5 mg tablet 5 mg PO TID PRN bladder spasms #15 11/03/24 tabs oxycodone 5 mg tablet 5 mg PO Q4H PRN Pain #10 tabs 11/03/24 triamcinolone acetonide 0.1 % 1 applic topical DAILY 11/03/24 11/03/24 topical ointment PHYSICAL EXAM AT DISCHARGE General Appearance: positive No acute distress FOLLOW UP Follow Up: He will remove his Hernandez catheter on November 10 and follow-up in 6 weeks TIME SPENT Time Spent in Discharge (Minutes): 10 Discharge Plan Discharge Patient Disposition: Home, Self Care Condition: Good Medically Cleared Date:: 11/04/24 Prescriptions: New oxycodone 5 mg tablet 5 mg PO Q4H PRN (Reason: Pain) Qty: 10 0RF Rx Instructions: Take with food. Do Not drive while taking medication. oxybutynin chloride 5 mg tablet 5 mg PO TID PRN (Reason: bladder spasms) Qty: 15 0RF Continued doxazosin [Cardura] 2 MG tablet 6 mg PO HS triamcinolone acetonide 0.1 % ointment 1 applic TOPICAL DAILY Activity Restrictions/Additional Instructions: DIET - You may resume your normal diet if there is no nausea or vomiting. You may want to avoid spicy, greasy, or heavy foods today to minimize gas. - If nausea or vomiting occurs, don't eat or drink anything for one hour. Then start drinking small amounts of clear liquids. Later, add crackers, gradually building up to your usual diet. ACTIVITY INSTRUCTIONS * No heavy lifting for about 6 weeks. No significant exercise for 6 weeks * You may shower but no bathing or soaking in water until the catheter is removed DISCHARGE INSTRUCTIONS * You will be given instructions to remove your catheter. Please remove your catheter on November 10 in the currency counter. I recommend doing this in the shower as it is normal for some blood in urine to come out as well. Dispose of the catheter as normal * Call for fever greater than 100.4 Fahrenheit * It is normal to have blood in your urine or around the catheter for the next few days. It is normal to occasionally see spasms of urine around the catheter. As long as most of the urine is draining into the catheter then this is fine * Call if the catheter is not draining MEDICATIONS * Resume your normal home medications. Take Tylenol as needed for pain. Take narcotic pain medications for rescue pain. Take stool softeners on days when you take pain medications * Take oxybutynin as needed for spasms ANESTHESIA PRECAUTIONS Anesthesia and medications given during surgery remain in your body up to 24 hours. This may slow reaction time and/or decrease coordination. FOR THE NEXT 24 HOURS: - Have a responsible person with you - Avoid any activity that requires you to be alert and coordinated - DO NOT DRIVE a motor vehicle for 24 hours or as long as you are taking opoid pain medication - Do not drink alcoholic beverages - Do not smoke unattended Patient Date Escort Date RN Date Diet: Regular Print Language: German Patient Instructions: Surgery Anesthesia After, Hernandez Catheter Remove, TURP, TURP Home Recover, Catheter Bag Urinary Empty Clean, Leg Bag Care Dc Follow-up Care: Rene Gaona MD [Provider Admit Priv/Credential] - (You will be contacted for follow-up in roughly [address] Gaona)"
== END 2024-11-04 10:39 | disposition home or self-care (01) ==
LOC: MS3 06:56 → SDS 06:56 → MS3 13:06
PROVIDERS: ADMIT Urology; ATTEND Urology
DX: N40.1 Benign prostatic hyperplasia with lower urinary tract symptoms; R31.9 Hematuria, unspecified; N13.8 Other obstructive and reflux uropathy